=== PATIENT | female | born 1995 | race Caucasian/White ===

== ENCOUNTER 2021-03-28 08:53 | Outpatient (CLI) | payer OTHER ==
[2021-03-28 10:19] LABS: THYROID STIMULATING HORMONE 0.87 uIU/mL (0.34-3.74)
[2021-03-28 12:17] LABS: APPEARANCE,URINE CLEAR (CLEAR); BILIRUBIN,URINE NEGATIVE (NEGATIVE); BLOOD, URINE NEGATIVE (NEGATIVE); COLOR,URINE YELLOW (YELLOW); LEUKOCYTE ESTERASE ,URINE NEGATIVE (NEGATIVE); NITRITE, URINE NEGATIVE (NEGATIVE); UGLUCOSE NEGATIVE (NEGATIVE)
[2021-03-28 12:33] LABS: BARBITURATE, URINE NEGATIVE ng/ml (NEG <=200); BENZODIAZEPINE, URINE NEGATIVE ng/mL (NEG <=200); CANNABINOID, URINE NEGATIVE ng/mL (NEG <=50); COCAINE, URINE NEGATIVE ng/mL (NEG <=300); OPIATE, URINE NEGATIVE ng/mL (NEG <=2000); PHENCYCLIDINE SCREEN,URINE NEGATIVE ng/mL (NEG <=25)
[2021-03-29 09:07] LABS: HEPATITIS B SURFACE ANTIBODY Reactive (.); T4 FREE (DIRECT) 1.26 ng/dL (0.82-1.77)
== END 2021-03-28 17:54 | disposition home or self-care (01) ==
LOC: MLB 08:53
PROVIDERS: ATTEND Obstetrics & Gynecology
DX: Z11.4 Encounter for screening for human immunodeficiency virus [HIV] (principal); Z11.59 Encounter for screening for other viral diseases; Z13.29 Encounter for screening for other suspected endocrine disorder; Z11.8 Encounter for screening for other infectious and parasitic diseases; Z13.0 Encounter for screening for diseases of the blood and blood-forming organs and certain disorders involving the immune mechanism; Z13.228 Encounter for screening for other metabolic disorders
CPT/HCPCS: 36415; 80305; 81003; 82947; 83036; 84439; 84443; 84702; 86592; 86702; 86706; 86762; 86886; 86900; 86901